=== PATIENT | female | born 1975 | race Caucasian/White ===

== ENCOUNTER 2017-10-11 08:45 | Inpatient (IN) | payer OTHER ==
[~2017-10-11] VITALS: Ht 172.7 cm; Wt 60.8 kg
[2017-10-14] MEDS ORDERED: KETO10TA2 PO (09:19)
[2017-10-14] MEDS ORDERED: ACETAMINOPHEN-1 EAC2 PO (09:20)
== END 2017-10-14 11:34 | disposition home or self-care (01) | DRG 743 ==
LOC: SURH 10-13 08:45 → O/R 10-13 10:10 → SURG-SUITE 10-13 10:10 → SURH 10-13 11:15 → SURG-SUITE 10-13 16:10
PROVIDERS: Obstetrics & Gynecology
PROC: 0UJD4ZZ Inspection of Uterus and Cervix, Percutaneous Endoscopic Approach (ICD-10-PCS; 2017-10-13)
PROC: 0TJB8ZZ Inspection of Bladder, Via Natural or Artificial Opening Endoscopic (ICD-10-PCS; 2017-10-13)
PROC: 0T9B70Z Drainage of Bladder with Drainage Device, Via Natural or Artificial Opening (ICD-10-PCS; 2017-10-13)
PROC: 0UT97ZZ Resection of Uterus, Via Natural or Artificial Opening (ICD-10-PCS; principal; 2017-10-13 11:15)
DX: D25.1 Intramural leiomyoma of uterus (principal); N92.1 Excessive and frequent menstruation with irregular cycle; G89.18 Other acute postprocedural pain; N72 Inflammatory disease of cervix uteri; N80.0 Endometriosis of uterus